=== PATIENT | male | born 1955 | race Caucasian/White ===

== ENCOUNTER 2016-11-19 10:22 | Observation (INO) | payer BC ==
[2016-11-19] MEDS ORDERED: ZOFRAN INJ 4 MG VIAL IVP PRN (10:48)
[2016-11-19] MEDS ORDERED: PHENERGAN INJ 25 MG IVP PRN (10:48)
[2016-11-19] MEDS ORDERED: PROTONIX TAB 40 MG PO SCH (11:00)
[2016-11-19 11:15] LABS: BASOPHILS # (AUTO) 0.1 X10^3/uL (0.0-0.1); BASOPHILS % (AUTO) 0.5 % (0.2-1.0); HEMATOCRIT 47.8 % (42.0-54.0); HEMOGLOBIN 16.4 g/dL (13.5-18.0); LYMPHOCYTES # (AUTO) 0.3 X10^3/uL (1.3-2.9); LYMPHOCYTES % (AUTO) 2.6 % (21.0-51.0); MEAN CORPUSCULAR HEMOGLOBIN 28.8 pg (27.0-34.0); MEAN CORPUSCULAR HGB CONC 34.4 g/dL (33.0-35.0); MEAN CORPUSCULAR VOLUME 83.8 fL (80.0-100.0); MEAN PLATELET VOLUME 7.8 fL (7.4-11.0); MONOCYTES # (AUTO) 0.8 x10^3/uL (0.3-0.8); MONOCYTES % (AUTO) 7.8 % (0.0-13.0); NEUTROPHILS # (AUTO) 9.5 x10^3/uL (2.2-4.8); NEUTROPHILS % (AUTO) 89.1 % (42.0-75.0); PLATELET COUNT 185 X10^3/uL (150.0-450.0); RED CELL DISTRIBUTION WIDTH 13.7 % (11.6-16.5); WHITE BLOOD COUNT 10.6 X10^3/uL (3.6-10.0)
[2016-11-19 11:24] LABS: ALANINE AMINOTRANSFERASE 50 Units/L (12-78); ALKALINE PHOSPHATASE 66 Units/L (46-116); AMYLASE 33 Units/L (25-115); ASPARTATE AMINO TRANSFERASE 22 Units/L (15-37); BLOOD UREA NITROGEN 28 mg/dL (7-18); CALCIUM 8.4 mg/dL (8.5-10.1); CARBON DIOXIDE 27.9 mmol/L (21-32); CHLORIDE 107 mmol/L (98-107); COR NA(FOR HYPERGLY) 147 mmol/L (136-145); CREATININE 1.28 mg/dL (0.70-1.30); GLUCOSE 139 mg/dL (65-99); LIPASE 99 Units/L (73-393); SODIUM 146 mmol/L (136-145); TOTAL PROTEIN 7.6 g/dL (6.4-8.2); eGFR BLACK RACES > 60 (>60); eGFR NON BLACK RACES > 60 (>60)
[2016-11-19] MEDS: NS 1000 ML 1,000 ML IV SCH ×2 (11:40→21:20)
[2016-11-19 14:42] LABS: BILIRUBIN,URINE 1+ (NEGATIVE); BLOOD/HEMOGLOBIN,URINE 1+ (NEGATIVE); GLUCOSE, URINE NEGATIVE (NEGATIVE); KETONES,URINE 1+ (NEGATIVE); LEUKOCYTE ESTERASE ,URINE 1+ (NEGATIVE); NITRITES,URINE NEGATIVE (NEGATIVE); PROTEIN,URINE 2+ (NEGATIVE); UROBILINOGEN,URINE 1+ (NORMAL)
[2016-11-19 14:50] LABS: APPEARANCE,URINE SLIGHTLY HAZY (CLEAR); BACTERIA,URINE TRACE /HPF (NEGATIVE); COLOR,URINE DARK YELLOW (YELLOW); RBC,URINE 0-3 /HPF (NEGATIVE); SQUAMOUS EPITHELIAL CELL,UR RARE /HPF (NEGATIVE)
[2016-11-19 14:51] LABS: MUCUS,URINE MANY /HPF (NEGATIVE)
[2016-11-19] MEDS: MORPHINE SULFATE INJ 2 MG IVP PRN ×2 (15:21→21:19)
--- NOTE | 2016-11-19 16:02 | RAD ---
HISTORY: Acute abdominal pain, fever, nausea, vomiting Study: Acute abdominal series Comparison: None Findings: The lungs are clear without consolidation, effusion or pneumothorax. The cardiac and mediastinal co ntours are within normal limits. There are mildly dilated small bowel loops seen in the mid upper abdomen with multiple scattered air -fluid levels seen on the upright projection. There is overall a paucity of bowel gas seen in the co [place]. No gross free intraperitoneal air. No pathological soft tissue mass or calcification can be obs erved. The bony structures are grossly intact. IMPRESSION: 1. Mildly dilated small bowel loops in the mid and upper abdomen with scattered air-fluid levels. Th ere is overall paucity of bowel gas seen in the colon. Recommend further evaluation with contrast en hanced CT of the abdomen and pelvis to evaluate for obstruction. 2. No acute cardiopulmonary abnormality. Reported By:
--- NOTE | 2016-11-19 16:11 | US ---
HISTORY: Right upper quadrant pain with nausea and vomiting Study: Right upper quadrant abdominal ultrasound Comparison: None Technique: Multiple images of the right upper quadrant were obtained. Findings: The liver measures 18.8 cm. Increased echogenicity throughout the visualized liver suggests fatty in filtration. Correlate clinically as other causes of hepatic disease may produce a similar appearance . The right kidney measures 12.0 x 6.9 x 6.0 cm. No sonographic evidence of hydronephrosis is identi fied. The gallbladder is not well visualized however shadowing emanating from the right upper quadra nt suggest cholelithiasis. The pancreas was incompletely visualized. IMPRESSION: 1. Sonographic findings of hepatic steatosis. 2. Suspected gallstones within the gallbladder as noted above. Reported By:
[2016-11-19 16:26] VITALS: BMI 33.5
--- NOTE | 2016-11-19 18:30 | DR.H&P ---
H&P - History & Physical for Day of: H&P Date: 11/19/16 - Chief Complaint Chief Complaint: ABDOMINAL PAIN, N/V, FEVER - Allergies Allergies/Adverse Reactions: Allergies Allergy/AdvReac Type Severity Reaction Status Date / Time No Known Drug Allergy Allergy Verified 11/19/16 11:49 - History of Present Illness History of Present Illness: PATIENT IS A 61-YEAR-OLD WHITE MALE WHO WAS A DIRECT ADMIT FROM dR. Sahu'S OFFICE AFTER PRESENTING WITH SEVERE ABDOMINAL PAIN, FEVER AND VOMITING. pATIENT STATES THE ONSET OF SYMPTOMS WAS LAST P.M. AFTER EATING PIZZA. pATIENT HAS A PAST MEDICAL HISTORY OF CONTROLLED HYPERTENSION AND SEASONAL ALLERGIES. pATIENT WAS ADMITTED FOR TREATMENT AND EVALUATION OF ABDOMINAL PAIN AND FEVER. pLAN TO OBTAIN ct SCAN OF ABDOMEN AND PELVIS, ADMISSION LABS, PAIN AND NAUSEA CONTROL, NOTHING BY MOUTH - Past Medical History Past Medical History: Hypertension - Past Surgical History Surgical History: Other - Family History Family Medical History: Cancer, [place], Hypertension - Social History Does patient currently use any type of tobacco product: No Have you used tobacco products in the last 12 months: No Type of Tobacco Use: None Does any household member use tobacco: No Alcohol Use: None Drug Use: None - Medications Home Medications: Atorvastatin Calcium [LIPITOR Tab 20 mg *] 1 tab PO DAILY 11/19/16 [History Confirmed 11/19/16] Folic Acid [FOLIC ACID TAB 1 MG *] 1 tab PO DAILY 11/19/16 [History Confirmed ] Lisinopril 2.5 mg PO DAILY 11/19/16 [History Confirmed 11/19/16] - Review of Systems Constitutional: Fever, Chills, Sweats Eyes: No Symptoms Reported ENT: No Symptoms Reported Respiratory: No Symptoms Reported Cardiovascular: No Symptoms Reported Gastrointestinal: Nausea, Vomiting, Abdominal Pain Genitourinary: No Symptoms Reported Musculoskeletal: No Symptoms Reported Skin: No Symptoms Reported Neurological: No Symptoms Reported - Physical Exam Vital Signs: Temperature 100.0 F Pulse Rate [Right Brachial] 90 Respiratory Rate 18 Blood Pressure [Right Arm] 116/76 O2 Sat by Pulse Oximetry 95 Oriented: Normal Eyes: Normal Ear: Normal Nose: Normal Throat: Normal Respiratory: Clear Throughout Cardiovascular: Normal : Normal Auscultation: Bowel Sounds: Other (HYPO TO RLQ) Tenderness: RUQ, RLQ, Epigastric Skin: Normal Musculoskeletal: Normal Mood Description: Calm Speech Pattern: Clear, Appropriate - Assessment/Plan (1) Acute abdominal pain Status: Acute Plan: ADMIT, CBC CMP AMYLASE LIPASE UA ON ADMISSION. ABD SERIES,ABD US, IV HYDRATION AND PAIN AND NAUSEA CONTROL (2) N&V (nausea and vomiting) Qualifiers: Vomiting type: V Vomiting Intractability: V Status: Acute (3) Fever Qualifiers: Fever type: F Encounter type: E Status: Acute Plan: HYDRATE, PAIN AND FEVER CONTROL (4) Hypertension Qualifiers: Hypertension type: H Status: Acute Plan: RESUME HOME MEDS
[2016-11-19] MEDS ORDERED: NS 100 ML IV 100 ML IV ONE (20:46)
[2016-11-19] MEDS: ANCEF VIAL 1 GM 1 GM in NS 100 ML IV 100 ML IV SCH (21:19)
--- NOTE | 2016-11-19 21:37 | CT ---
HISTORY: Right upper quadrant abdominal pain with vomiting Study: CT abdomen and pelvis with IV and oral contrast Comparison: None Technique: Multiple axial images of the abdomen and pelvis were obtained from the lung bases to the pubic symph ysis with the administration of IV contrast. Sagittal and coronal reformations were provided. Findings: The visualized portions of the lung bases are unremarkable. The liver, spleen, pancreas, kidneys, a nd adrenal glands are unremarkable in their CT appearance. The gallbladder is unremarkable in its CT appearance. No significant mesenteric lymphadenopathy or stranding can be observed. No free fluid or free air is seen within the abdomen. The appendix is normal. There is mild distention of distal jejunum to over 3 centimeters with some short air-fluid levels. Distal ileum is normal in caliber. Proximal jejunum is mildly distended.. There is mild sigmoid diverticulosis.. The urinary bladder i s grossly unremarkable. The bony structures are grossly intact. IMPRESSION: 1. Mild small bowel obstruction Reported By:
[2016-11-20] MEDS: MORPHINE SULFATE INJ 2 MG IVP PRN ×3 (00:37→21:43)
[2016-11-20 05:29] LABS: ALANINE AMINOTRANSFERASE 45 Units/L (12-78); ALBUMIN 3.4 g/dL (3.4-5.0); ALKALINE PHOSPHATASE 52 Units/L (46-116); ASPARTATE AMINO TRANSFERASE 23 Units/L (15-37); BLOOD UREA NITROGEN 23 mg/dL (7-18); CALCIUM 7.5 mg/dL (8.5-10.1); CARBON DIOXIDE 25.7 mmol/L (21-32); CHLORIDE 107 mmol/L (98-107); COR NA(FOR HYPERGLY) 145 mmol/L (136-145); CREATININE 0.96 mg/dL (0.70-1.30); GLUCOSE 112 mg/dL (65-99); SODIUM 145 mmol/L (136-145); TOTAL PROTEIN 6.7 g/dL (6.4-8.2); eGFR BLACK RACES > 60 (>60); eGFR NON BLACK RACES > 60 (>60)
[2016-11-20 05:47] LABS: BASOPHILS # (AUTO) 0.1 X10^3/uL (0.0-0.1); BASOPHILS % (AUTO) 0.7 % (0.2-1.0); HEMATOCRIT 43.6 % (42.0-54.0); HEMOGLOBIN 14.5 g/dL (13.5-18.0); LYMPHOCYTES % (AUTO) 12.3 % (21.0-51.0); MEAN CORPUSCULAR HEMOGLOBIN 28.2 pg (27.0-34.0); MEAN CORPUSCULAR HGB CONC 33.4 g/dL (33.0-35.0); MEAN CORPUSCULAR VOLUME 84.6 fL (80.0-100.0); MEAN PLATELET VOLUME 8.2 fL (7.4-11.0); MONOCYTES # (AUTO) 0.8 x10^3/uL (0.3-0.8); MONOCYTES % (AUTO) 10.4 % (0.0-13.0); NEUTROPHILS # (AUTO) 6.1 x10^3/uL (2.2-4.8); NEUTROPHILS % (AUTO) 76.6 % (42.0-75.0); PLATELET COUNT 168 X10^3/uL (150.0-450.0); RED BLOOD COUNT 5.15 X10^6/uL (4.7-6.0); RED CELL DISTRIBUTION WIDTH 13.9 % (11.6-16.5)
[2016-11-20] MEDS: ANCEF VIAL 1 GM 1 GM in NS 100 ML IV 100 ML IV SCH ×3 (06:03→21:39)
[2016-11-20] MEDS: NS 1000 ML 1,000 ML IV SCH ×2 (08:10→21:39)
[2016-11-20] MEDS: PROTONIX INJ 40 MG VIAL IVP SCH ×2 (08:10→21:41)
[2016-11-20] MEDS ORDERED: DILAUDID ONE (09:48)
[2016-11-20] MEDS: DILAUDID INJ IVP PRN (09:55)
--- NOTE | 2016-11-20 12:32 | NM ---
HISTORY: Abdominal pain Study: Nuclear medicine HIDA scan with ejection fraction Comparison: None Technique: Multiple scintigraphic images of the abdomen were obtained the intravenous administration of 5.5 mCi of technetium labeled Choletec. Following distention of the gallbladder with radiotracer the patient received a fatty meal. An maria de jesus mated gallbladder ejection fraction was calculated based on the physiologic response of this infusio n. Findings: Homogeneous uptake of radiotracer is seen throughout the liver. This intrabiliary ductal system is observed normally. The common hepatic and common bile duct grossly appear unremarkable with normal biliary-bowel transit. The gallbladder is observed to fill normally. After the fatty meal a gallbladder ejection fraction of -1.2% (normal > 35%) is observed. IMPRESSION: 1. Normal hepatobiliary imaging scan. 2. Abnormal gallbladder ejection fraction -1.2% Reported By:
[2016-11-20] MEDS: ZESTRIL TAB 5 MG PO SCH (12:43)
--- NOTE | 2016-11-20 18:06 | PCM.PROG ---
Progress Note - Progress Note for Day of Date: 11/20/16 - Subjective Subjective: continued upper abdominal pain and nausea. pt NPO this am. Abnormal HIDA scan, plan to consult dr conner for lap dena. npo after midnight - Past Medical Family Social History Past Med/Fam/Surg Hx: No changes since H&P Allergies: Allergies No Known Drug Allergy Allergy (Verified 11/19/16 11:49) - Review of Systems ROS: No change since H&P - Vital Signs and I&O's Vital Signs: Temperature 97.7 F Pulse Rate [Left Brachial] 76 Pulse Rate [Right Brachial] 83 Respiratory Rate 20 Blood Pressure [Left Arm] 146/85 Blood Pressure [Right Arm] 139/87 O2 Sat by Pulse Oximetry 94 Intake and Output: Intake & Output 11/18/16 11/19/16 11/20/16 11/21/16 11:59 11:59 11:59 11:59 Intake Total 1000 920 Output Total 100 Balance 900 920 - Physical Exam Oriented: Normal Eyes: Normal Ear: Normal Nose: Normal Throat: Normal Cardiovascular: Normal : Normal Auscultation: Bowel Sounds: Other (HYPO TO RLQ) Tenderness: RUQ, RLQ, Epigastric Skin: Normal Musculoskeletal: Normal Mood Description: Calm Speech Pattern: Clear, Appropriate - Laboratory and Diagnostics Result Diagrams: 11/20/16 03:50 11/20/16 03:50 Labs: 11/19/16 14:23 Urine,Random Urine Culture - Preliminary Laboratory WBC 8.0 X10^3/uL (3.6-10.0) 11/20/16 03:50 RBC 5.15 X10^6/uL (4.7-6.0) 11/20/16 03:50 Hgb 14.5 g/dL (13.5-18.0) 11/20/16 03:50 Hct 43.6 % (42.0-54.0) 11/20/16 03:50 MCV 84.6 fL (80.0-100.0) 11/20/16 03:50 MCH 28.2 pg (27.0-34.0) 11/20/16 03:50 MCHC 33.4 g/dL (33.0-35.0) 11/20/16 03:50 RDW 13.9 % (11.6-16.5) 11/20/16 03:50 Plt Count 168 X10^3/uL (150.0-450.0) 11/20/16 03:50 MPV 8.2 fL (7.4-11.0) 11/20/16 03:50 Neut % 76.6 % (42.0-75.0) H 11/20/16 03:50 Lymph % 12.3 % (21.0-51.0) L 11/20/16 03:50 [place] % 10.4 % (0.0-13.0) 11/20/16 03:50 Eos % 0.0 % (0.9-2.9) L 11/20/16 03:50 Baso % 0.7 % (0.2-1.0) 11/20/16 03:50 Neut # 6.1 x10^3/uL (2.2-4.8) H 11/20/16 03:50 Lymph # 1.0 X10^3/uL (1.3-2.9) L 11/20/16 03:50 [place] # 0.8 x10^3/uL (0.3-0.8) 11/20/16 03:50 Eos # 0.0 x10^3/uL (0.0-0.2) 11/20/16 03:50 Baso # 0.1 X10^3/uL (0.0-0.1) 11/20/16 03:50 Absolute Nucleated RBC 0.2 /100WBC 11/20/16 03:50 Sodium 145 mmol/L (136-145) 11/20/16 03:50 Corrected Sodium 145 mmol/L (136-145) 11/20/16 03:50 Potassium 3.3 mmol/L (3.5-5.1) L 11/20/16 03:50 Chloride 107 mmol/L (98-107) 11/20/16 03:50 Carbon Dioxide 25.7 mmol/L (21-32) 11/20/16 03:50 BUN 23 mg/dL (7-18) H 11/20/16 03:50 Creatinine 0.96 mg/dL (0.70-1.30) 11/20/16 03:50 Est GFR (MDRD) Af Amer > 60 (>60) 11/20/16 03:50 Est GFR (MDRD) Non-Af > 60 (>60) 11/20/16 03:50 Glucose 112 mg/dL (65-99) H 11/20/16 03:50 Calcium 7.5 mg/dL (8.5-10.1) L 11/20/16 03:50 Corrected Calcium TNP 11/20/16 03:50 Total Bilirubin 0.80 mg/dL (0.2-1.0) 11/20/16 03:50 AST 23 Units/L (15-37) 11/20/16 03:50 ALT 45 Units/L (12-78) 11/20/16 03:50 Alkaline Phosphatase 52 Units/L (46-116) 11/20/16 03:50 Total Protein 6.7 g/dL (6.4-8.2) 11/20/16 03:50 Albumin 3.4 g/dL (3.4-5.0) 11/20/16 03:50 Globulin 3.3 g/dL (2.5-4.5) 11/20/16 03:50 Albumin/Globulin Ratio 1.0 Ratio (1.1-2.1) L 11/20/16 03:50 Amylase 33 Units/L (25-115) 11/19/16 11:03 Lipase 99 Units/L (73-393) 11/19/16 11:03 Specimen Type Clean catch urine 11/19/16 14:23 Urine Color Dark yellow (YELLOW) 11/19/16 14:23 Urine Appearance Slightly hazy (CLEAR) 11/19/16 14:23 Urine pH 5.0 (5.0 - 8.0) 11/19/16 14:23 Ur Specific [place] 1.020 (1.000-1.030) 11/19/16 14:23 Urine Protein 2+ (NEGATIVE) 11/19/16 14:23 Urine Glucose (UA) Negative (NEGATIVE) 11/19/16 14:23 Urine Ketones 1+ (NEGATIVE) 11/19/16 14:23 Urine Occult Blood 1+ (NEGATIVE) 11/19/16 14:23 Urine Nitrite Negative (NEGATIVE) 11/19/16 14:23 Urine Bilirubin 1+ (NEGATIVE) 11/19/16 14:23 Urine Urobilinogen 1+ (NORMAL) 11/19/16 14:23 Ur Leukocyte Esterase 1+ (NEGATIVE) 11/19/16 14:23 Urine RBC 0-3 /HPF (NEGATIVE) 11/19/16 14:23 Urine WBC 0-3 /HPF (NEGATIVE) 11/19/16 14:23 Ur Squamous Epith Cells Rare /HPF (NEGATIVE) 11/19/16 14:23 Urine Bacteria Trace /HPF (NEGATIVE) 11/19/16 14:23 Urine Mucus Many /HPF (NEGATIVE) 11/19/16 14:23 Ur Culture Indicated? No/not indicated 11/19/16 14:23 Stool Description Fob 11/19/16 14:23 Stl Occult Blood (IFOB) Positive (NEGATIVE) A 11/19/16 14:23 - Plan (1) Acute abdominal pain Status: Acute Plan: biliary dyskinesia, npo after midnight. consult dr conner for lap dena (2) N&V (nausea and vomiting) Status: Acute Qualifiers: Vomiting type: V Vomiting Intractability: V (3) Fever Status: Acute Qualifiers: Fever type: F Encounter type: E Plan: HYDRATE, PAIN AND FEVER CONTROL (4) Hypertension Status: Acute Qualifiers: Hypertension type: H Plan: RESUME HOME MEDS
[2016-11-21] MEDS: ANCEF VIAL 1 GM 1 GM in NS 100 ML IV 100 ML IV SCH ×3 (05:08→21:18)
[2016-11-21] MEDS: MORPHINE SULFATE INJ 2 MG IVP PRN ×2 (05:09→19:54)
[2016-11-21] MEDS: NS 1000 ML 1,000 ML IV SCH ×2 (07:03→22:49)
[2016-11-21] MEDS ORDERED: VERSED ONE (09:17)
[2016-11-21] MEDS ORDERED: ZOFRAN INJ 4 MG VIAL ONE (09:17)
[2016-11-21] MEDS ORDERED: REGLAN INJ 10 MG VIAL ONE (09:17)
[2016-11-21] MEDS ORDERED: DYLOJECT INJ ONE (09:17)
[2016-11-21] MEDS ORDERED: QUELICIN (OR ANECTINE) ONE (09:17)
[2016-11-21] MEDS ORDERED: NEOSTIGMINE INJ ONE (09:17)
[2016-11-21] MEDS ORDERED: DIPRIVAN VIAL ONE (09:17)
[2016-11-21] MEDS ORDERED: XYLOCAINE 2 % (PLAIN) ONE (09:17)
[2016-11-21] MEDS ORDERED: NORCURON INJ 10 MG VIAL ONE (09:17)
[2016-11-21] MEDS ORDERED: SUPRANE IN ONE (09:17)
[2016-11-21] MEDS ORDERED: APRESOLINE INJ 20 MG VIAL ONE (09:17)
[2016-11-21] MEDS ORDERED: ROBINUL ONE (09:17)
[2016-11-21] MEDS: PROTONIX INJ 40 MG VIAL IVP SCH ×2 (10:27→21:18)
[2016-11-21] MEDS: ZESTRIL TAB 5 MG PO SCH (10:27)
[2016-11-21] MEDS: DILAUDID INJ IVP PRN ×5 (10:39→21:19)
[2016-11-21] MEDS ORDERED: XYLOCAINE 1 % (PLAIN) ONE (14:06)
[2016-11-21] MEDS ORDERED: MARCAINE 0.25% WITH EPI IJ ONE (14:06)
[2016-11-21] MEDS ORDERED: FENTANYL INJ 250 mcg ONE (14:35)
[2016-11-21] MEDS ORDERED: LR 1000 ML IV 1,000 ML IV ONE (14:36)
[2016-11-21] MEDS ORDERED: NS 50 ML IV + SPIKE MINIBAG* 50 ML IV ONE ×2 (14:37→15:10)
[2016-11-21] MEDS: ANCEF VIAL 1 GM ONE ×4 (14:45→21:20)
[2016-11-21] MEDS ORDERED: NS IRRIGATION 3000 ML 3,000 ML IR ONE (16:01)
--- NOTE | 2016-11-21 17:02 | PCM.PROG ---
Progress Note - Progress Note for Day of Date: 11/21/16 - Subjective Subjective: NPO FOR MICHEL HOLGUIN PER DR GOMEZ, PT STABLE - Past Medical Family Social History Past Med/Fam/Surg Hx: No changes since H&P Allergies: Allergies No Known Drug Allergy Allergy (Verified 11/19/16 11:49) - Review of Systems ROS: No change since H&P - Vital Signs and I&O's Vital Signs: Temperature 98.4 F Pulse Rate [Left Brachial] 63 Pulse Rate [Right Brachial] 70 Respiratory Rate 20 Blood Pressure [Left Arm] 149/92 Blood Pressure [Right Arm] 139/87 O2 Sat by Pulse Oximetry 93 Intake and Output: Intake & Output 11/19/16 11/20/16 11/21/16 11/22/16 11:59 11:59 11:59 11:59 Intake Total 1000 1760 50 Output Total 100 2250 Balance 900 1760 -2200 - Physical Exam Oriented: Normal Eyes: Normal Ear: Normal Nose: Normal Throat: Normal Cardiovascular: Normal : Normal Auscultation: Bowel Sounds: Other (HYPO TO RLQ) Tenderness: RUQ, RLQ, Epigastric Skin: Normal Musculoskeletal: Normal Mood Description: Calm Speech Pattern: Clear, Appropriate - Laboratory and Diagnostics Result Diagrams: 11/20/16 03:50 11/20/16 03:50 Labs: 11/19/16 19:45 Blood Blood Culture - Preliminary 11/19/16 19:28 Blood Blood Culture - Preliminary 11/19/16 14:23 Urine,Random Urine Culture - Final Laboratory WBC 8.0 X10^3/uL (3.6-10.0) 11/20/16 03:50 RBC 5.15 X10^6/uL (4.7-6.0) 11/20/16 03:50 Hgb 14.5 g/dL (13.5-18.0) 11/20/16 03:50 Hct 43.6 % (42.0-54.0) 11/20/16 03:50 MCV 84.6 fL (80.0-100.0) 11/20/16 03:50 MCH 28.2 pg (27.0-34.0) 11/20/16 03:50 MCHC 33.4 g/dL (33.0-35.0) 11/20/16 03:50 RDW 13.9 % (11.6-16.5) 11/20/16 03:50 Plt Count 168 X10^3/uL (150.0-450.0) 11/20/16 03:50 MPV 8.2 fL (7.4-11.0) 11/20/16 03:50 Neut % 76.6 % (42.0-75.0) H 11/20/16 03:50 Lymph % 12.3 % (21.0-51.0) L 11/20/16 03:50 [place] % 10.4 % (0.0-13.0) 11/20/16 03:50 Eos % 0.0 % (0.9-2.9) L 11/20/16 03:50 Baso % 0.7 % (0.2-1.0) 11/20/16 03:50 Neut # 6.1 x10^3/uL (2.2-4.8) H 11/20/16 03:50 Lymph # 1.0 X10^3/uL (1.3-2.9) L 11/20/16 03:50 [place] # 0.8 x10^3/uL (0.3-0.8) 11/20/16 03:50 Eos # 0.0 x10^3/uL (0.0-0.2) 11/20/16 03:50 Baso # 0.1 X10^3/uL (0.0-0.1) 11/20/16 03:50 Absolute Nucleated RBC 0.2 /100WBC 11/20/16 03:50 Sodium 145 mmol/L (136-145) 11/20/16 03:50 Corrected Sodium 145 mmol/L (136-145) 11/20/16 03:50 Potassium 3.3 mmol/L (3.5-5.1) L 11/20/16 03:50 Chloride 107 mmol/L (98-107) 11/20/16 03:50 Carbon Dioxide 25.7 mmol/L (21-32) 11/20/16 03:50 BUN 23 mg/dL (7-18) H 11/20/16 03:50 Creatinine 0.96 mg/dL (0.70-1.30) 11/20/16 03:50 Est GFR (MDRD) Af Amer > 60 (>60) 11/20/16 03:50 Est GFR (MDRD) Non-Af > 60 (>60) 11/20/16 03:50 Glucose 112 mg/dL (65-99) H 11/20/16 03:50 Calcium 7.5 mg/dL (8.5-10.1) L 11/20/16 03:50 Corrected Calcium TNP 11/20/16 03:50 Total Bilirubin 0.80 mg/dL (0.2-1.0) 11/20/16 03:50 AST 23 Units/L (15-37) 11/20/16 03:50 ALT 45 Units/L (12-78) 11/20/16 03:50 Alkaline Phosphatase 52 Units/L (46-116) 11/20/16 03:50 Total Protein 6.7 g/dL (6.4-8.2) 11/20/16 03:50 Albumin 3.4 g/dL (3.4-5.0) 11/20/16 03:50 Globulin 3.3 g/dL (2.5-4.5) 11/20/16 03:50 Albumin/Globulin Ratio 1.0 Ratio (1.1-2.1) L 11/20/16 03:50 Amylase 33 Units/L (25-115) 11/19/16 11:03 Lipase 99 Units/L (73-393) 11/19/16 11:03 Specimen Type Clean catch urine 11/19/16 14:23 Urine Color Dark yellow (YELLOW) 11/19/16 14:23 Urine Appearance Slightly hazy (CLEAR) 11/19/16 14:23 Urine pH 5.0 (5.0 - 8.0) 11/19/16 14:23 Ur Specific [place] 1.020 (1.000-1.030) 11/19/16 14:23 Urine Protein 2+ (NEGATIVE) 11/19/16 14:23 Urine Glucose (UA) Negative (NEGATIVE) 11/19/16 14:23 Urine Ketones 1+ (NEGATIVE) 11/19/16 14:23 Urine Occult Blood 1+ (NEGATIVE) 11/19/16 14:23 Urine Nitrite Negative (NEGATIVE) 11/19/16 14:23 Urine Bilirubin 1+ (NEGATIVE) 11/19/16 14:23 Urine Urobilinogen 1+ (NORMAL) 11/19/16 14:23 Ur Leukocyte Esterase 1+ (NEGATIVE) 11/19/16 14:23 Urine RBC 0-3 /HPF (NEGATIVE) 11/19/16 14:23 Urine WBC 0-3 /HPF (NEGATIVE) 11/19/16 14:23 Ur Squamous Epith Cells Rare /HPF (NEGATIVE) 11/19/16 14:23 Urine Bacteria Trace /HPF (NEGATIVE) 11/19/16 14:23 Urine Mucus Many /HPF (NEGATIVE) 11/19/16 14:23 Ur Culture Indicated? No/not indicated 11/19/16 14:23 Stool Description Fob 11/19/16 14:23 Stl Occult Blood (IFOB) Positive (NEGATIVE) A 11/19/16 14:23 - Plan (1) Acute abdominal pain Status: Acute Plan: biliary dyskinesia, npo after midnight. FOR LAP EZIO THIS AM PER DR HURST (2) N&V (nausea and vomiting) Status: Acute Qualifiers: Vomiting type: V Vomiting Intractability: V (3) Fever Status: Acute Qualifiers: Fever type: F Encounter type: E Plan: HYDRATE, PAIN AND FEVER CONTROL (4) Hypertension Status: Acute Qualifiers: Hypertension type: H Plan: RESUME HOME MEDS
[2016-11-21] MEDS ORDERED: NEOSPORIN OINT ONE (17:08)
[2016-11-21] MEDS ORDERED: ZOFRAN INJ 4 MG VIAL IVP PRN (17:17)
[2016-11-21] MEDS ORDERED: REGLAN INJ 10 MG VIAL IVP PRN (17:17)
[2016-11-21] MEDS ORDERED: BENADRYL INJ 50 MG VIAL IVP PRN (17:17)
[2016-11-21] MEDS ORDERED: PHENERGAN INJ 25 MG IVP PRN (17:17)
[2016-11-21] MEDS: LIPITOR TAB 20 MG PO SCH (22:48)
[2016-11-22] MEDS: MORPHINE SULFATE INJ 2 MG IVP PRN (00:44)
[2016-11-22] MEDS: ANCEF VIAL 1 GM 1 GM in NS 100 ML IV 100 ML IV SCH ×2 (05:20→16:46)
[2016-11-22] MEDS: DILAUDID INJ IVP PRN ×2 (05:20→09:00)
[2016-11-22 06:04] LABS: BASOPHILS % (AUTO) 0.3 % (0.2-1.0); EOSINOPHILS % (AUTO) 0.1 % (0.9-2.9); HEMATOCRIT 37.9 % (42.0-54.0); HEMOGLOBIN 13.1 g/dL (13.5-18.0); LYMPHOCYTES # (AUTO) 1.7 X10^3/uL (1.3-2.9); LYMPHOCYTES % (AUTO) 19.3 % (21.0-51.0); MEAN CORPUSCULAR HEMOGLOBIN 28.5 pg (27.0-34.0); MEAN CORPUSCULAR HGB CONC 34.6 g/dL (33.0-35.0); MEAN CORPUSCULAR VOLUME 82.5 fL (80.0-100.0); MEAN PLATELET VOLUME 8.3 fL (7.4-11.0); MONOCYTES # (AUTO) 1.5 x10^3/uL (0.3-0.8); MONOCYTES % (AUTO) 17.5 % (0.0-13.0); NEUTROPHILS # (AUTO) 5.4 x10^3/uL (2.2-4.8); NEUTROPHILS % (AUTO) 62.8 % (42.0-75.0); PLATELET COUNT 163 X10^3/uL (150.0-450.0); RED CELL DISTRIBUTION WIDTH 13.8 % (11.6-16.5); WHITE BLOOD COUNT 8.6 X10^3/uL (3.6-10.0)
[2016-11-22 06:13] LABS: ALANINE AMINOTRANSFERASE 55 Units/L (12-78); ALBUMIN 2.9 g/dL (3.4-5.0); ALKALINE PHOSPHATASE 42 Units/L (46-116); ASPARTATE AMINO TRANSFERASE 51 Units/L (15-37); BLOOD UREA NITROGEN 11 mg/dL (7-18); CALCIUM 7.7 mg/dL (8.5-10.1); CHLORIDE 103 mmol/L (98-107); COR CA(FOR HYPOALB) 8.6 mg/dL (8.5-10.1); CREATININE 0.71 mg/dL (0.70-1.30); GLUCOSE 103 mg/dL (65-99); SODIUM 140 mmol/L (136-145); TOTAL PROTEIN 5.8 g/dL (6.4-8.2); eGFR BLACK RACES > 60 (>60); eGFR NON BLACK RACES > 60 (>60)
[2016-11-22] MEDS: LIPITOR TAB 20 MG PO SCH (08:00)
[2016-11-22] MEDS: ZESTRIL TAB 5 MG PO SCH (08:00)
[2016-11-22] MEDS: PROTONIX INJ 40 MG VIAL IVP SCH (08:00)
[2016-11-22] MEDS ORDERED: FOLIC ACID TAB 1 MG PO SCH (09:00)
[2016-11-22] MEDS ORDERED: PERCOCET TAB 5/325 MG PO PRN (09:48)
[2016-11-22 11:52] LABS: AMYLASE 27 Units/L (25-115); LIPASE 229 Units/L (73-393)
[2016-11-22 16:54] VITALS: BP 139/89
== END 2016-11-22 16:50 | disposition home or self-care (01) | DRG 353 ==
LOC: MED/SURG 10:22
PROVIDERS: ADMIT Internal Medicine; ATTEND Internal Medicine
PROC: 0WQF4ZZ Repair Abdominal Wall, Percutaneous Endoscopic Approach (ICD-10-PCS; 2016-11-21)
PROC: 0FT44ZZ Resection of Gallbladder, Percutaneous Endoscopic Approach (ICD-10-PCS; principal; 2016-11-21 14:00)
DX: R10.11 Right upper quadrant pain (principal); K83.1 Obstruction of bile duct; R11.2 Nausea with vomiting, unspecified; I10 Essential (primary) hypertension; R50.9 Fever, unspecified; K56.69 Other intestinal obstruction; K81.1 Chronic cholecystitis; K42.9 Umbilical hernia without obstruction or gangrene; E87.0 Hyperosmolality and hypernatremia; R73.09 Other abnormal glucose; R94.4 Abnormal results of kidney function studies; R19.5 Other fecal abnormalities; K82.8 Other specified diseases of gallbladder
CPT/HCPCS: 36415; 74022; 74177; 76705; 78227; 80053; 81001; 82150; 82270; 83690; 85025; 87040; 87086; 93005; 93010; A4222; C9113; S0020; G0378; J0330; J0360; J0690; J1170; J2001; J2250; J2270; J2405; J2550; J2710; J2765; J3010; J3490; J7120

== ENCOUNTER → 2016-12-17 | Outpatient (CLI) | payer BC ==
[2016-11-22 16:54] VITALS: BP 139/89
[~2016-12-17] MED LIST: NS 100 ML IV 100 ML IV ONE
--- NOTE | 2016-12-17 13:19 | CT ---
CT OF THE ABDOMEN AND PELVIS WITH CONTRAST HISTORY: Postop cholecystectomy with intraoperative gallbladder rupture. Comparison: 11/19/2016 Technique: Multiple axial images of the abdomen and pelvis were obtained from the lung bases to the pubic symph ysis follow the administration of IV contrast. Dose reduction techniques including Automated Exposu re Control (AEC) and adjustment of mA and kV were utlized. Findings: The heart is normal in size. There is no pericardial effusion. Lung bases are clear without focal co nsolidation, pleural effusion or pneumothorax. Liver and spleen are normal in size, enhancement characteristics and contour. No focal lesions. The portal vein is patent. No ductal dilitation. Status post cholecystectomy. Trace fluid can be seen in the gallbladder fossa. The pancreas is unremarkable. Adrenal glands are normal. Kidneys enhance sym metrically without hydronephrosis or nephrolithiasis. No bowel obstruction or inflammation. Normal appendix. Interval umbilical hernia repair. No abnormal appearing mesenteric or retroperitoneal lymph nodes. No free fluid or fluid collections. The bladder is normal in appearance. Prostate not enlarged. No free fluid or abnormal pelvic lymph n odes. No aggressive osseous lesions. IMPRESSION: 1. Status post cholecystomy without significant abnormality other than trace fluid in the gallbladd er fossa. This is likely normal postoperative fluid. 2. Repaired umbilical hernia. Reported By:
== END ==
LOC: RAD 11:45
PROVIDERS: ATTEND Student in an Organized Health Care Education/Training Program
DX: Z09 Encounter for follow-up examination after completed treatment for conditions other than malignant neoplasm (principal)
CPT/HCPCS: 74177; A4222